=== PATIENT | male | born 2000 | race African-American/Black ===

== ENCOUNTER 2020-12-18 00:06 | Emergency (ER) | payer OTHER ==
[~2020-12-18] VITALS: Ht 177.8 cm; Wt 104.5 kg
[2020-12-18 07:38] LABS: BASO % 0.7 % (0.0-1.0); EOS # 0.2 10^3/uL (0.0-0.5); EOS % 3.7 % (0.0-3.0); HEMOGLOBIN 15.3 g/dl (13.5-17.5); LYMPH # 2.1 10^3/uL (1.5-5.0); LYMPH % 38.4 % (24.0-44.0); MEAN CORPUSCULAR HEMOGLOBIN 28.9 pg (27.0-33.0); MEAN CORPUSCULAR HGB CONC 32.6 g/dl (32.0-36.5); MEAN CORPUSCULAR VOLUME 88.7 fl (80.0-96.0); MONO # 0.7 10^3/uL (0.0-0.8); MONO % 12.9 % (2.0-8.0); NEUTROPHILS # 2.4 10^3/uL (1.5-8.5); NEUTROPHILS % 44.1 % (36.0-66.0); PLATELET COUNT, AUTOMATED 289 10^3/uL (150-450); WHITE BLOOD COUNT 5.4 10^3/uL (4.0-10.0)
[2020-12-18 07:49] LABS: INR 0.94; PARTIAL THROMBOPLASTIN TIME 31.7 SECONDS (24.2-38.5); PROTHROMBIN TIME 12.8 SECONDS (12.5-14.3)
--- NOTE | 2020-12-18 07:51 | REP ---
INDICATION: CVA. COMPARISON: No comparison chest x-ray. TECHNIQUE: Portable upright AP chest radiograph. FINDINGS: The lungs are well inflated and free of infiltrate. Pleural angles are sharp. Heart size is normal. Pulmonary vasculature is not increased. EKG monitoring electrodes are present. IMPRESSION: No active disease. <Electronically signed by Iván Kurtz > 12/18/20 [id number]
[2020-12-18 08:04] LABS: CK-MB VALUE MASS 1.3 NG/ML (<3.6); CPK CREATINE PHOSPHOKINASE 267 U/L (39-308); MB/CK RELATIVE INDEX 0.49 (< OR =4); TROPONIN I < 0.02 NG/ML (< 0.10)
--- NOTE | 2020-12-18 08:32 | REPVR ---
PROCEDURE INFORMATION: Exam: CT Head Without Contrast Exam date and time: 12/18/2020 6:58 AM Age: 20 years old Clinical indication: Other: Left arm numbness; Additional info: CVA - nursing interventions must not delay CT TECHNIQUE: Imaging protocol: Computed tomography of the head without contrast. Radiation optimization: All CT scans at this facility use at least one of these dose optimization techniques: automated exposure control; mA and/or kV adjustment per patient size (includes targeted exams where dose is matched to clinical indication); or iterative reconstruction. COMPARISON: No relevant prior studies available. FINDINGS: Brain: Normal. No hemorrhage. Unremarkable white matter. No mass effect. Cerebral ventricles: No ventriculomegaly. Paranasal sinuses: Visualized sinuses are unremarkable. No fluid levels. Mastoid air cells: Visualized mastoid air cells are well aerated. Bones/joints: No acute abnormality. No acute fracture. Soft tissues: Unremarkable. IMPRESSION: No acute intracranial abnormality identified. Electronically signed by: Nirav Richardson On 12/18/2020 08:32:09 AM
[2020-12-18] MEDS ORDERED: PRED20TA PO (09:26)
[2020-12-18 09:30] VITALS: BP 136/66
--- NOTE | 2020-12-19 10:48 | ECGEPIP ---
[facility] - ED Test Date: 2020-12-18 Pat Name: MARY JO MANCINI Department: Room: - Gender: Male [employer] Installation [employer]: : [id number] Requested By: EDWAR LAROSE PA-C. Order Number: [id number] Reading MD: Brenda Pabon Measurements Intervals [place] Rate: 55 P: 44 MI: 148 QRS: 62 QRSD: 100 T: 28 QT: 372 QTc: 355 Interpretive Statements Sinus bradycardia No prior Electronically Signed on 12-19-2020 10:47:38 EDT by Brenda Pabon
== END 2020-12-18 09:39 | disposition home or self-care (01) ==
LOC: M ED 00:06
DX: R20.2 Paresthesia of skin (principal)